=== PATIENT | female | born 1975 | race African-American/Black ===

== ENCOUNTER 2023-05-28 18:46 | Emergency (ER) | payer BC, MEDICAID ==
[~2023-05-28] VITALS: Ht 172.7 cm; Wt 82.0 kg
[~2023-05-28 18:46] MED LIST: ALBU18HF2 IH
[2023-05-28 18:51] VITALS: O2SAT 99
[2023-05-28] MEDS ORDERED: FLUORESCEIN SODIUM 1MG/STRIP BOTHEYE ONE (19:15)
[2023-05-28] MEDS ORDERED: TETRACAINE 0.5% OPHTH DROPS 4ML BOTHEYE ONE (19:15)
[2023-05-28] MEDS ORDERED: ONDANSETRON 4MG ODT PO ONE (19:45)
[2023-05-28] MEDS ORDERED: ACETAMINOPHEN 325MG TABLET PO ONE (19:45)
[2023-05-28] MEDS ORDERED: TETANUS, DIPHTHERIA, PERTUSSIS VAC/PF 0.5ML (>10YR OLD) IM ONE (21:15)
[2023-05-28] MEDS ORDERED: OCUFLX LEFTEYE (21:20)
[2023-05-28] MEDS ORDERED: KETO10TA2 MT (21:20)
[2023-05-28 21:25] VITALS: BP 129/78; PULSE 87; RESP 18; TEMP 99.1
== END 2023-05-28 22:00 | disposition home or self-care (01) ==
LOC: ER 18:46
DX: S09.90XA Unspecified injury of head, initial encounter (principal); H11.33 Conjunctival hemorrhage, bilateral; H53.8 Other visual disturbances; M54.2 Cervicalgia; F12.10 Cannabis abuse, uncomplicated; Y08.89XA Assault by other specified means, initial encounter; Y93.89 Activity, other specified; Y92.89 Other specified places as the place of occurrence of the external cause; Y99.8 Other external cause status
CPT/HCPCS: 99285; 70450; 71045; 70486; 72125; 90715; 90471; Q0162